=== PATIENT | male | born 1960 | race Two or more races ===

== ENCOUNTER 2018-08-07 20:41 | Emergency (ER) | payer SELFPAY ==
[~2018-08-07] VITALS: Ht 167.6 cm; Wt 85.7 kg
--- NOTE | 2018-08-07 21:30 | NUR ---
pt stated a door fell on his left fourth finger which is swollen with a 0.5cm laceration overall appearances fair pain level a 5, comfort and safety maintained daughter at his bedside
[2018-08-07] MEDS ORDERED: CEphaleXIN 500 MG CAPSULE PO ONE (22:00)
[2018-08-07] MEDS ORDERED: TDAP DIPH,PERTUSS,TET VAC/PF 0.5 ML DISP.SYRIN IM ONE ×2 (22:00→22:36)
[2018-08-07] MEDS ORDERED: HYDROCODONE/APAP 5-325MG TABLET PO ONE (22:00)
[2018-08-07] MEDS ORDERED: HYDROCODONE/APAP 5-325MG TABLET ONE (22:35)
[2018-08-07] MEDS ORDERED: CEphaleXIN 500 MG CAPSULE ONE (22:35)
--- NOTE | 2018-08-07 22:40 | NUR ---
pt resting with left hand in normal saline and betadine wash overall appearances fair denies pain stated it only hurts when he moves that 4th finger of the left hand, comfort and safety maintained
--- NOTE | 2018-08-07 23:40 | NUR ---
pt was medicated earlier with keflex, norco and tdap denies allergies medications teaching given comfort and safety maintained pt stated the medications were effective he has no pain
--- NOTE | 2018-08-08 01:10 | NUR ---
pt is being discharge to home awaiting for cd of the left hand; left fourth finger was bandage as order pt condition remains stable without incident his daughter at his side
[2018-08-08 02:05] VITALS: BP 118/84
== END 2018-08-08 01:10 | disposition home or self-care (01) ==
LOC: ER 20:43
DX: S62.621A Displaced fracture of middle phalanx of left index finger, initial encounter for closed fracture (principal); S61.211A Laceration without foreign body of left index finger without damage to nail, initial encounter; L08.9 Local infection of the skin and subcutaneous tissue, unspecified; W20.8XXA Other cause of strike by thrown, projected or falling object, initial encounter; Y93.89 Activity, other specified; Y92.89 Other specified places as the place of occurrence of the external cause; Y99.8 Other external cause status
CPT/HCPCS: 73140; 90715; A4217; A4663